=== PATIENT | male | born 1975 | race Caucasian/White ===

== ENCOUNTER 2017-10-02 15:31 | Emergency (ER) | payer OTHER ==
[2017-10-02 15:35] VITALS: BP 132/87; PULSE 81; TEMP 98.1; BMI 28.0
[2017-10-02] MEDS ORDERED: diazePAM 5 MG TABLET PO ONE (16:09)
[2017-10-02] MEDS ORDERED: diazePAM 5 MG TABLET ONE (16:13)
--- NOTE | 2017-10-02 16:13 | PDOC ---
History of Present Illness - General Chief Complaint: Head/Neck problem Stated Complaint: STIFF NECK Time Seen by Provider: 10/02/17 15:42 History Source: Patient Exam Limitations: No Limitations - History of Present Illness Initial Comments: 10/02/17 16:10 42 year old male who woke up with stiffness of neck, states applied warm water with no relief. Denies injury or fall. States took no medication so far. Timing/Duration: 4-6 hours Severity: moderate Modifying Factors: improves with: immobilization, medication Associated Symptoms: reports: denies symptoms Aspirin Received prior to arrival: Yes: no aspirin today Asa Contraindications(Core Measure): No: Allergy Beta Davion Contraindications(Core Measure): Yes: Not Prescribed Beta Davion Given by EMS(Core Measure): No Beta Davion Taken at Home(Core Measure): No Beta Davion Not Indicated at this Time(Core Measure): No Past History - Travel Traveled outside of the country in the last 30 days: No Close contact w/someone who was outside of country & ill: No - Past Medical History Allergies/Adverse Reactions: Allergies Allergy/AdvReac Type Severity Reaction Status Date / Time No Known Allergies Allergy Verified 10/02/17 15:35 Home Medications: Ambulatory Orders Cyclobenzaprine HCl [Flexeril -] 10 mg PO TID #21 tablet 10/02/17 COPD: No Other medical history: NONE - Suicide/Smoking/Psychosocial Hx Smoking History: Never smoked Hx Alcohol Use: No Drug/Substance Use Hx: No Substance Use Type: None Review of Systems - Review of Systems Able to Perform ROS?: Yes Is the patient limited Serbian proficient: No Constitutional: No: Chills, Weakness HEENTM: No: Double Vision, Cataracts, Ear Discharge, Mouth Swelling Respiratory: No: Shortness of Breath, SOB at Rest Cardiac (ROS): No: Chest Pain, Lightheadedness ABD/GI: No: Symptoms Reported, Abdominal Distended, Abd. Pain w/ defecation, Blood Streaked Bowels, Nausea, Rectal Bleeding : No: Discharge, Flank Pain, Hematuria, Incontinence Musculoskeletal: Yes: Neck Pain, Joint Stiffness Integumentary: No: See HPI, Erythema, Flushing Neurological: No: Numbness, Paresthesia, Tingling, Weakness *Physical Exam - Vital Signs Last Vital Signs Temp Pulse Resp BP Pulse Ox 98.1 F 81 20 132/87 99 10/02/17 15:32 10/02/17 15:32 10/02/17 15:32 10/02/17 15:32 10/02/17 15:32 - Physical Exam General Appearance: Yes: Nourished, Appropriately Dressed. No: Apparent Distress HEENT: positive: EOMI, KARY, Pharynx Normal Neck: positive: Rigidity (of neck, no mid cervical spine tenderness, pain with moving neck to right and left) Respiratory/Chest: positive: Lungs Clear, Normal Breath Sounds. negative: Respiratory Distress, Paradoxal Breathing, Crackles, Wheezing, Hyperresonant Cardiovascular: positive: Regular Rhythm, Regular Rate, S1, S2 Gastrointestinal/Abdominal: negative: Guarding Male Genitalia: negative: normal prostate Rectal Exam: negative: decreased tone Medical Decision Making - Medical Decision Making 10/02/17 16:14 42 year old male with stiffness of neck upon awakening this morning. valium ordered 10/02/17 16:55 pain better since receiving valium d/c with rx flexeril and warm compresses *DC/Admit/Observation/Transfer Diagnosis at time of Disposition: Torticollis, acute - Discharge Dispostion Disposition: HOME Condition at time of disposition: Good Admit: No - Prescriptions Prescriptions: Cyclobenzaprine HCl [Flexeril -] 10 mg PO TID #21 tablet - Referrals - Patient Instructions Printed Discharge Instructions: DI for Neck Pain Additional Instructions: *Please apply warm compress to neck for 20 minutes three times daily *Take medication until pain is relieved *Follow up with primary physician - Post Discharge Activity Forms/Work/School Notes: Back to Work
== END 2017-10-02 17:08 | disposition home or self-care (01) ==
LOC: JERFT 15:31
DX: M43.6 Torticollis (principal)
CPT/HCPCS: 99281-25